=== PATIENT | female | born 1955 | race Caucasian/White ===

== ENCOUNTER 2024-10-27 13:22 | Emergency (ER) | payer MEDICARE, SELFPAY ==
[2024-10-27 13:38] VITALS: BP 119/55; PULSE 107; RESP 16; TEMP 36.1; O2SAT 100
--- NOTE | 2024-10-27 13:57 | ED_ITS ---
HPI - Female Genitourinary General Chief complaint: Urogenital-Female Stated complaint: Urinary Problem Source: patient and RN notes reviewed Mode of arrival: ambulatory Limitations: no limitations History of Present Illness HPI Narrative: 69-year-old female presents Express Care complaining of urinary symptoms for 5 days. Patient reports having dysuria, increased frequency, hesitancy. Patient denies any fevers, back pain, abdominal pain, body aches, chills, nausea, vomiting, diarrhea, blood in her urine, vaginal bleeding, vaginal discharge summary other symptom. Patient has not taken anything [id number] for symptoms. Patient denies any significant past medical history. Related Data Home Medications ?Medication ?Instructions ?Recorded ?Confirmed ?Last Taken ?Type duloxetine 60 mg capsule,delayed 60 mg PO DAILY 04/05/21 Unknown History release gabapentin 300 mg capsule 900 mg PO TID 04/05/21 Unknown History metoprolol succinate 25 mg 25 mg PO DAILY 04/05/21 Unknown History tablet,extended release 24 hr pramipexole 1 mg tablet 1 mg PO ONCE 04/05/21 Unknown History rosuvastatin 10 mg tablet 10 mg PO DAILY 04/05/21 Unknown History Allergies Allergy/AdvReac Type Severity Reaction Status Date / Time bupropion Allergy Unknown Hallucinati Verified 04/05/21 14:23 ons Review of Systems Review of Systems: CONSTITUTIONAL: Denies fever, chills, body aches, or sweats. EYES: Denies visual changes, redness, or discharge. ENT: Denies rhinorrhea, congestion, sore throat, or otalgia. CARDIOVASCULAR: Denies chest pain, palpitations, or edema. RESPIRATORY: Denies cough or dyspnea. GASTROINTESTINAL: Denies abdominal pain, nausea, vomiting, or diarrhea. GENITOURINARY: Positive for dysuria, increased frequency, hesitancy. Negative for hematuria, vaginal bleeding, vaginal discharge. SKIN: Denies rash or itching. MUSCULOSKELETAL: Denies back pain, joint pain, or myalgia. NEUROLOGIC: Denies headache, numbness, or weakness. PSYCHIATRIC: Denies anxiety or depression. All other systems reviewed are negative, except as documented in HPI. [facility] Past Medical History Medical History Hypertension Allergies Cancer Arthritis Social History Social History Smoking packs per day: 0.5 Smoking cigarettes per day: 10.0 Smoking status: Current every day smoker Alcohol intake: never Substance use: never Comments At the time of my signature, I reviewed and agree with the nursing past medical, surgical, social, and family history. There is no relevant family history pertinent to the patient complaint. Exam Narrative: GENERAL: This is a well-nourished, well-developed adult, in no apparent distress. They are non ill-appearing, nontoxic appearing. HEAD: normocephalic, atraumatic. EYES: Sclera clear/white. Vision is grossly intact. Conjunctiva normal bilaterally. Extraocular movements intact. EARS: External ears normal,Hearing grossly intact. NOSE: External nose normal THROAT: Mucous membranes moist NECK: Normal range of motion CARDIOVASCULAR: Regular rate and rhythm. Normal S1-S2. No clicks, gallops, rubs, murmurs. RESPIRATORY: Respiratory rate normal, respiratory effort nonlabored, no respiratory distress. Lung sounds clear to auscultation throughout. Lung sounds equal bilaterally. No adventitious lung sounds. GASTROINTESTINAL: Abdomen soft, flat, non-tender, nondistended. Bowel sounds are active. No hepato-splenomegaly, or palpable masses. No guarding. No rebound tenderness. SKIN: warm, Dry, intact with no suspicious lesions or rash, good texture and turgor. NEURO: awake, alert, and oriented to person, place and time. There were no obvious focal neurologic abnormalities. EXTREMITIES: No joint tenderness, effusion, or edema noted. BACK: Nontender without deformity. No CVA tenderness. Course Course Emergency Course: Portions of this record may have been created with voice recognition software Level of Care: Express Care Visit Vital Signs Vital signs: Vital Signs Temperature 97 F L 10/27/24 13:38 Pulse Rate 107 H 10/27/24 13:38 Respiratory Rate 16 10/27/24 13:38 Blood Pressure 119/55 L 10/27/24 13:38 Pulse Oximetry 100 10/27/24 13:38 Oxygen Delivery Room Air 10/27/24 13:38 Temperature 97 F L 10/27/24 13:38 Pulse Rate 107 H 10/27/24 13:38 Respiratory Rate 16 10/27/24 13:38 Blood Pressure 119/55 L 10/27/24 13:38 Pulse Oximetry 100 10/27/24 13:38 Oxygen Delivery Room Air 10/27/24 13:38 MDM - Female Genitourinary MDM Narrative Medical decision making narrative: Urine dipstick shows evidence of urinary tract infection. Urine culture pending. Will treat with cephalexin. Discussed physical exam findings. Advised supportive measures and signs/symptoms to go to the ER. Pt is appropriate for outpt treatment and f/u. Differential Diagnosis Differential diagnosis: Likely urinary tract infection, cystitis and other (Pyelonephritis) Lab Data Attestation: I reviewed the patient's lab results. Discharge Plan Discharge Clinical Impression: Urinary tract infection Qualifiers: Urinary tract infection type: site unspecified Hematuria presence: without hematuria Qualified Code(s): N39.0 - Urinary tract infection, site not specified Patient Disposition: Home Condition: Stable Instructions: Antibiotic Form, Urinary Tract Infection in Women (ED) Additional Instructions: Take the antibiotic as prescribed The urine will be sent of for a culture to identify what type of bacteria is causing your infection. If the culture shows that the antibiotic will not get rid of your infection, you will be notified and a new antibiotic will be called in for you. Increase water intake you will need to follow up with your PCP 3-5 days. Go to the ER for any worsening symptoms, abdominal pain, fevers, nausea, vomiting, or any other concerns Patient Language: Faroese Prescriptions: New cephalexin 500 mg capsule 500 mg PO BID 5 Days Qty: 10 0RF No Action gabapentin 300 mg capsule 900 mg PO TID metoprolol succinate 25 mg tablet extended release 24 hr 25 mg PO DAILY duloxetine 60 mg capsule,delayed release(DR/EC) 60 mg PO DAILY rosuvastatin 10 mg tablet 10 mg PO DAILY pramipexole 1 mg tablet 1 mg PO ONCE Follow-up/Referrals: UNKNOWN,DOCTOR [Primary Care Provider] - Time of Disposition: 13:52
[2024-10-27 13:59] LABS: EDUAAPPEAR Cloudy; EDUABILI Negative (Negative); EDUABLOOD Negative (Negative); EDUACOLOR1 Yellow; EDUAGLUCOSE Negative (Negative); EDUAKETONE Negative (Negative); EDUALEUKO 1+ (Negative); EDUANITRATE Negative (Negative); EDUAPH 6.5; EDUAPROTEIN 1+ (Negative); EDUASPGRAVITY 1.030; EDUAUROBILI 1.0
--- OUTSIDE RECORDS SUMMARY | 2024-10-27 14:28 | XMS_ITS | Encounter Summary ---
Author Organization [facility] Address [address] [place] [address] Phone Care Team Providers Care Police [employer] Name Role Phone Jose Angel Mejia MD Primary Care Provider [phone] Jose Angel Mejia MD Primary Care Provider Jose Angel Mejia MD Primary Care Provider Krysta Worthy MD Primary Care Provider Amanda Hua MD PhD Unavailable [phone] Everett Lopes MD Unavailable [phone] Encounter Details Date Type Department Care Team (Latest Contact Info) Description 01/12/2016 Orders Only [facility] Scanning, Provider Social History Tobacco Use Types Packs/Day Years Used Date Smoking Tobacco: Never Assessed Alcohol Use Standard Drinks/Week Comments No 0 (1 standard drink = 0.6 oz pur e alcohol) Comments Unknown Sex and Gender Information Value Date Recorded Sex Assigned at Not on file Legal Sex Female 1:17 AM SUPPLY PERSON Gender Identity Female 05/11/2021 10:15 AM SUPPLY PERSON Sexual Orientation Straight 11/26/2018 1: 36 PM CDT documented as of this encounter Plan of Treatment Upcoming Encounters Date Type Department Care Team (Late st Contact Info) Description 11/18/2024 8:00 AM CDT Hospital Encounter [facility] [address] [facility] [place] [address] Jose Cardozo MD [address] [facility] [address] [place], [place] [id number] documented as of this encounter Procedures Procedure Name Priority Date/Time Associated Diagnosis Comments SCAN - PATHOLOGY 01/12/2016 documented in this encounter Results * SCAN - PATHOLOGY (01/12/2016) us Provider Scanning Edited Result - Final documented in this encounter Visit Diagnoses Not on filedocumented in this encounter Additional Health Concerns Infection Onset Date Last Indicated Resolved Time COVID: Suspected 07/09/2019 07/09/2019 07/10/2019 10:18 PM CDT Respiratory Infection (BONNIE), contact + droplet Comment:Automatically added due to negative COVID-19 result. 07/10/2019 07/10/2019 07/24/2019 3:0 6 AM CDT COVID: Suspected 02/10/2020 02/11/2020 02/12/2020 10:51 PM SUPPLY PERSON COVID19 02/11/2020 02/11/2020 02/25/2020 3:07 AM SUPPLY PERSON COVID: Recovered Comment:Added based on recent COVID infection. 02/25/2020 03/12/2020 06/24/2020 3:06 AM C DT documented as of this encounter Care Teams Police [employer] Relationship Specialty Start Date End Date Jose Angel Mejia MD PCP - General 06/09/16 06/22/19 Jose Angel Mejia MD PCP - General 05/15/16 06/08/16 Jose Angel Mejia MD PCP - General 06/01/11 05/14/16 Krysta Worthy MD PCP - General Internal Medicine 06/23/19 Amanda Hua MD PhD [address] [place] [address] Consulting Physician Neurology 03/29/22 Everett Lopes MD [address] [place] [address] Consulting Physician Cardiology 03/30/22 documented as of this encounter
--- OUTSIDE RECORDS SUMMARY | 2024-10-27 14:28 | XMS_ITS | Encounter Summary ---
Author Organization [facility] Address [address] [place] [address] Phone Care Team Providers Care Lens Gauger Name Role Phone Krysta Worthy MD Primary Care Provider Amanda Hua MD PhD Unavailable Everett Lopes MD Unavailable [phone] Encounter Details Date Type Department Care Team (Late st Contact Info) Description 06/13/2022 Telephone [facility] [address] [facility] [address] [place] [address] Zaynab Taylor LPN Social History Tobacco Use Types Packs/Day Years Used Date Smoking Tobacco: Every Day Cigarettes 1 52.1 Started: 09/16/1972 Smokeless Tobacco: Never Comments:I had quit smoking for 7 years. Restarted when both parents started cancer treatments. Alcohol Use Standard Drinks/Week Comments Not Currently 0 (1 standard drink = 0.6 oz pur e alcohol) AUDIT-C Answer Date Recorded Q1: How often do you have a drink containing alc ohol? Monthly or less 03/30/2022 Q2: How many drinks containi ng alcohol do you have on a typical day when you are drinking? 1 or 2 03/30/2022 Q3: How often do you have si x or more drinks on one occasion? Never 03/30/2022 Overall Financial Resource Strain (CARDIA) Answe r Date Recorded How hard is it for you to pa y for the very basics like food, housing, medical care, and heating? Not very hard 07/28/2019 PHQ-2 Answer Date Recorded PHQ-2 Total Score (If total score is 3 or more points, staff should administer the PHQ-9) 3 03/23/2022 Hunger Vital Sign Answer Date Recorded Within the past 12 months, y ou worried that your food would run out before you got the money to buy more. Never true 07/28/19 20 Within the past 12 months, t he food you bought just didn't last and you didn't have money to get more. Never true 07/28/2019 PRAPARE - Transportation Answer Date Re corded In the past 12 months, has l ack of transportation kept you from medical appointments or from getting medications? No 07/10 In the past 12 months, has l ack of transportation kept you from meetings, work, or from getting things needed for daily living? 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 Not on fi le documented as of this encounter Plan of Treatment Upcoming Encounters Date Type Department Care Team (Late st Contact Info) Description 11/18/2024 8:00 AM CDT Hospital Encounter [facility] [address] [place] [address] Jose Cardozo MD [address] [facility] [address] [place] [address] documented as of this encounter Visit Diagnoses Not on filedocumented in this encounter Care Teams Lens Gauger Relationship Specialty Start Date End Date Krysta Worthy MD PCP - General Internal Medicine 06/23/19 Amanda Hua MD PhD [address] [place] [address] Consulting Physician Neurology 03/29/22 Everett Lopes MD [address] [place] [address] Consulting Physician Cardiology 03/30/22 documented as of this encounter
--- OUTSIDE RECORDS SUMMARY | 2024-10-27 14:28 | XMS_ITS | Clinical Summary ---
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 09/11/2019 Assessment & Plan (07/10/2019 2:21 PM CDT): History of atherosclerosis - will obtain WANG Will place [facility] Patient will notify me if wound increases in size or if she develops evidence of infection. Ulcer of left lower extremit y, limited to breakdown of skin 06/23/2019 09/11/2019 Assessment & Plan (06/23/2019 3:22 PM CDT): Leg ulcer at the site of previous injury by a piece of sheet metal. Superficial erosion approximately 2.5 cm x 2.5 cm. No drainage. Mild cellulitis around the ulcer. Keep foot elevated. Cephalexin 250 mg q.i.d. x7 days. Papular erythematous rash on the medial and lateral edges of the wound. Apply triamcinolone to this area. If no improvement within 1 week she will call the office and we will plan to refer her to [facility]. BMI 27.0-27.9,adult 03/14/2019 02/27/20 23 Overview (03/14/2019): BMI Follow-up includes: nutrition counseling, exercise counseling and education provided. Assessment & Plan (12/12/2022 11:17 AM CDT): BMI Follow-up includes: nutrition counseling, exercise counseling, and education provided. Assessment & Plan (03/30/2022 12:11 PM RADAR OPERATOR): BMI Follow-up includes: nutrition counseling, exercise counseling and education provided. Assessment & Plan (01/23/2022 1:53 PM RADAR OPERATOR): BMI Follow-up includes: nutrition counseling, exercise counseling and education provided. Assessment & Plan (12/20/2021 1:31 PM CDT): BMI Follow-up includes: nutrition counseling, exercise counseling and education provided. Assessment & Plan (09/27/2021 11:27 AM CDT): BMI Follow-up includes: nutrition counseling, exercise counseling and education provided. Assessment & Plan (03/30/2021 11:19 AM RADAR OPERATOR): BMI Follow-up includes: nutrition counseling, exercise counseling and education provided. Assessment & Plan (12/07/2020 10:10 AM CDT): BMI Follow-up includes: nutrition counseling, exercise counseling and education provided. Sleep med evaluation for AMANDA treatment Start metformin Recommended calorie counting with goal 1200 calories per day for 1 lb weight loss per week Assessment & Plan (09/14/2020 10:19 AM CDT): BMI Follow-up includes: nutrition counseling, exercise counseling and education provided. Assessment & Plan (09/02/2020 8:32 PM CDT): BMI Follow-up includes: nutrition counseling, exercise counseling and education provided. Start buproopion Assessment & Plan (12/15/2019 10:19 AM CDT): BMI Follow-up includes: nutrition counseling, exercise counseling and education provided. Assessment & Plan (09/11/2019 2:44 PM CDT): BMI Follow-up includes: nutrition counseling, exercise counseling and education provided. Assessment & Plan (07/10/2019 1:56 PM CDT): BMI Follow-up includes: nutrition counseling, exercise counseling and education provided. Assessment & Plan (06/23/2019 1:35 PM CDT): BMI Follow-up includes: nutrition counseling, exercise counseling and education provided. URI, acute 03/14/2019 06/23/2019 Assessment & Plan (04/09/2019 3:09 PM RADAR OPERATOR): We discussed today. It sounds like the patient has an upper respiratory infection which is worsening. I recomended increased oral fluid intake. I will institute antibiotics and monitor as clinical course dictates. We'll begin her on Levaquin she continues to smoke, she is willing to try to quit on Chantix Assessment & Plan (04/03/2019 6:34 AM RADAR OPERATOR): We discussed today. It sounds like the patient has an upper respiratory infection which is worsening. I recomended increased oral fluid intake. I will institute antibiotics and monitor as clinical course dictates. Other chest pain 01/08/2019 06/23/2019 Assessment & Plan (01/08/2019 12:32 PM CDT): L sided chest pain for 1 day. Likely musculoskeletal. Normal EKG today. Normal LHC in 06/2018. - Not interested in further treatment (anti-inflammatory or other) at this time Laceration of left lower extremity 12/27/2018 06/23/2019 Assessment & Plan (01/08/2019 12:35 PM CDT): Leg wound appears to be healing though remains macerated. No sign of infection - Bactroban Assessment & Plan (12/27/2018 9:41 AM CDT): I removed 2 sutures without incident on the upper side of her left lower extremity, the macerated area was more difficult we did remove 5 sutures however there possibly is another suture remaining there is quite a bit of clotted blood there, at this point we tried softening the area she will watch this area and possibly return Skin lesion of right leg 11/27/2018 Assessment & Plan (11/27/2018 10:17 AM CDT): Images from the original note were not included. She is concerned about a cyst on her right leg we will send to Dermatology for full evaluation BMI 32.0-32.9,adult 11/05/2018 07/10/19 Overview (11/05/2018): BMI Follow-up includes: nutrition counseling, exercise counseling and education provided. Dyspnea 07/09/2018 06/23/2019 Overview (07/09/2018): Added automatically from request for surgery Dysuria 08/30/2017 08/31/2023 Assessment & Plan (07/24/2023 1:25 PM CDT): UA today Start empiric bactrim Assessment & Plan (03/30/2021 11:29 AM RADAR OPERATOR): POCT UA consistent with UTI cipro 500 BID x7 days Assessment & Plan (12/07/2020 10:10 AM CDT): UA today to evaluate for UTI Assessment & Plan (04/09/2019 3:08 PM RADAR OPERATOR): We will start with a urinalysis here today Assessment & Plan (11/27/2018 10:29 AM CDT): States she is concerned about dysuria we will check a p.o. CT dipstick care today Dipstick shows evidence of probable UTI will start with Macrobid 100 b.i.d. Assessment & Plan (08/30/2017 11:37 AM CDT): States for the last 3 months she has had symptoms of urinary tract infection/grainy urine with foul smelling odor, we will refer to Urology for full evaluation Acute cystitis 06/06/2017 06/23/2019 BMI 28.0-28.9,adult 04/25/2017 12/21/19 22 Overview (05/31/2017): BMI Follow-up includes: nutrition counseling, exercise counseling and education provided. Assessment & Plan (04/02/2018 3:57 PM RADAR OPERATOR): BMI Follow-up includes: nutrition counseling, exercise counseling and education provided. Assessment & Plan (04/25/2017 11:21 AM RADAR OPERATOR): BMI Follow-up includes: nutrition counseling, exercise counseling and education provided. Atherosclerosis of both carotid arteries 04/25/2017 06/26/2017 Assessment & Plan (05/31/2017 11:33 AM CDT): As above continue encourage her smoking cessation Assessment & Plan (04/25/2017 11:43 AM RADAR OPERATOR): We reviewed some incidental findings will begin with carotid ultrasound Aortic atherosclerosis 04/25/201706/26 Assessment & Plan (05/31/2017 11:33 AM CDT): I am continue encourage her to quit smoking I a.m. going to start her on Crestor 5 mg as well Assessment & Plan (04/25/2017 11:43 AM RADAR OPERATOR): Again review aortic incidental findings begin with aortic ultrasound BMI 30.0-30.9,adult 10/10/2016 07/10/19 20 Overview (10/27/2016): BMI Follow-up includes: nutrition counseling, exercise counseling and education provided. Assessment & Plan (07/03/2018 12:42 PM CDT): BMI Follow-up includes: nutrition counseling, exercise counseling and education provided. Assessment & Plan (05/09/2018 11:16 AM RADAR OPERATOR): BMI Follow-up includes: nutrition counseling, exercise counseling and education provided. Assessment & Plan (10/27/2016 1:46 PM CDT): Continue encourage diet and exercise Assessment & Plan (10/10/2016 2:22 PM CDT): Reviewed BMI: appropriate education provided including, nutrition and exercise. Sicca 10/10/2016 10/10/2016 Shortness of breath 09/07/2016 06/23/19 20 Assessment & Plan (04/03/2019 6:33 AM RADAR OPERATOR): At baseline. Encourage smoking cessation. Reviewed Stress echo in 2001 normal. EKG Sinus Rhythm 70, unchanged compared to 2017 -RSR(V1) -nondiagnostic. -Left atrial enlargement. - Negative precordial T-waves -Probably normal -consider anteroseptal ischemia. Follows with Dr Lopes Assessment & Plan (07/08/2018 3:02 PM CDT): Progressive and limiting exertional dyspnea in the setting of coronary disease as manifest by coronary calcification on CT imaging, and underlying tobacco use worrisome for being an anginal equivalent. She also has a new resting sinus tachycardia and anterior T-wave changes on EKG. High suspicion for critical coronary disease. Will discontinue lisinopril to allow initiation of metoprolol, begin aspirin. Assess LV function with echocardiogram. Plan coronary geography and if appropriate PCI. Reviewed in detail with her the indications risks and benefits and she agrees to proceed. Further recommendations will be forthcoming. Assessment & Plan (05/09/2018 11:56 AM RADAR OPERATOR): At baseline. Encourage smoking cessation. Reviewed Stress echo in 2001 normal. EKG Sinus Rhythm 70, unchanged compared to 2017 -RSR(V1) -nondiagnostic. -Left atrial enlargement. - Negative precordial T-waves -Probably normal -consider anteroseptal ischemia. Instruct patient if symptoms should progress she should go to the emergency room. Patient verbalizes understanding. Assessment & Plan (10/27/2016 1:48 PM CDT): States that she is improving somewhat at this time Dehydration 05/22/2016 06/23/2019 Encounter for breast reconst ruction following mastectomy 01/25/2016 08/31/2023 Mixed anxiety depressive disorder 07/26/2013 06/23/2019 Overview (06/16/2016): Anxiety and depression Assessment & Plan (08/30/2017 11:33 AM CDT): We discussed briefly today she continues on Cymbalta states that it is working well Assessment & Plan (10/27/2016 1:48 PM CDT): States she is stable at this time continues on her usual medications including Cymbalta Essential hypertension 07/26/201309/27 Overview (06/16/2016): HTN (hypertension) Assessment & Plan (03/30/2021 11:57 AM RADAR OPERATOR): BP well controlled Continue current regimen Assessment & Plan (09/14/2020 7:50 PM CDT): BP well controlled Continue metoprolol 25 daily Assessment & Plan (09/02/2020 8:27 PM CDT): BP well controlled Continue current regimen Assessment & Plan (12/15/2019 11:28 AM CDT): Well controlled and having occasional symptomatic hypotension Stop triamterene-HCTZ Continue Metoprolol XL 25 Continue home monitoring Follow up 3 months Assessment & Plan (09/11/2019 12:49 PM CDT): BP well controlled Continue Triamterene-HCTZ 37.5-25, Metop XL 25 Assessment & Plan (06/23/2019 3:23 PM CDT): Blood pressure is well controlled. Continue Dyazide Reviewed low sodium diet and hidden sources of sodium in the diet to avoid. Assessment & Plan (04/03/2019 6:33 AM RADAR OPERATOR): Very well controlled on current regimen Assessment & Plan (07/03/2018 12:56 PM CDT): Very well controlled on current regimen Assessment & Plan (04/25/2017 11:42 AM RADAR OPERATOR): Hypertension is improving with treatment. Regular aerobic exercise. Stop smoking. Blood pressure will be reassessed at the next regular appointment. Assessment & Plan (10/27/2016 1:47 PM CDT): Patient is doing very well on current medical regimen. Will continue with same treatment and monitor as clinical course dictates. Lumbago 06/26/2011 06/23/2019 Notalgia 06/26/2011 08/31/2023 Abnormal mammogram 04/08/2009 0 Chest pain 12/08/2008 09/27/2021 Encounters Date Type Department Care Team Description 10/20/2024 10:00 AM CDT Telemedicine [facility] [address] [place] [address] 10/20/2024 Telephone [facility] [address] [place] [address] 4 [address] [place] [address] Zaynab Taylor LPN 10/16/2024 Telephone [facility] [address] [place] [address] 4 [address] [place] [address] Zaynab Taylor LPN 10/13/2024 Telephone [facility] [address] [place] [id number] Opal Michel 10/06/2024 10:29 AM CDT - 10/06/2024 11:59 PM CDT Hospital Encounter [facility] [address] [place] [address] Invasive ductal carcinoma of breast, left (HCC) Discharge Disposition: Discharge to home or self care 10/06/2024 Results Follow-Up [facility] [address] [place] [phone] Valorie Zapata, RN Dexa Axial Skeleton Bone Density 1 or 2 Site 09/24/2024 Telephone [facility] [address] [place] [phone] Krysta Worthy MD Additional Services Or Orders 09/15/2024 Telephone [facility] [address] [place] [address] [place] [phone] Zac Valencia MA 09/10/2024 Telephone [facility] [address] [place] [address] [place] [phone] Krysta Worthy MD 09/01/2024 Telephone [facility] [address] [place] [phone] Hue iJmenes 08/28/2024 Telephone [facility] [address] [place] [phone] Hue Jimenes 08/26/2024 Telephone [facility] [address] [place] [phone] Hue Jimenes 08/01/2024 Results Follow-Up [facility] [place] [address] [address] [place] [address] Vianney Samaniego NP Urine culture Urine, clean voided 07/31/2024 10:26 PM CDT - 07/31/2024 11:59 PM CDT [address] [address] Acute cystitis without hematuria Discharge Disposition: Discharge to home or self care 07/31/2024 5:45 PM CDT Office Visit [facility] [place] [address] [place] [phone] Trudy Mejia NP Acute cystitis without hematuria (Primary Dx) from Last 3 Months Immunizations Immunization Administration Dates Next Due Influenza, Quadrivalent, Hig h Dose, Preservative Free, Intrr 02/26/2023,12/20/2021,03/30/2021 Influenza, Trivalent, High D ose, Split, Preservative Free, Intramuscular 01/31/2024 Influenza, Trivalent, IM (MDV) 12/16/2012 Influenza, Unspecified 07/24/2023(Deferr ed: Patient Refused),01/23/2022(Deferred: Immunocompromised),12/30/2016(Deferred : Patient Refused),12/23/2016(Deferred: Contraindication),12/11/2015(Deferred: Patient decision) Moderna SARS-CoV-2 Monovalen t Vaccination (12+ YRS) 07/07/2020,06/15/2020 Pneumococcal Conjugate PCV 13 12/15/2019 Pneumococcal Polysaccharide PPV23 03/30/2021,04/2010,01/11/2011 Tdap 12/16/2018, 9,10/11/2010,10/11 ZOSTER LIVE 05/16/2011,05/16/2011 Surgical History Surgery Date Site/Laterality Comments TONSILLECTOMY Tonsillectomy APPENDECTOMY Appendectomy OTHER SURGICAL HISTORY ABNORMAL PAPS: BIOPSIES NOT CA PORTACATH PLACEMENT 03/12/2015 - 03/11/2016 has been removed MASTECTOMY 03/12/2015 - 03/11/2016 Bilateral BREAST RECONSTRUCTION 03/12/2015 - 03/11/2016 Bilateral tissue expanders BREAST RECONSTRUCTION 04/12/2016 - 05/09/2016 Bilateral COLONOSCOPY 2010 UPPER GASTROINTESTINAL ENDOSCOPY ECTOPIC SURGERY fallopian tube removed WISDOM TOOTH EXTRACTION FLUORO GUIDED INJECTION HIP RIGHT 06/08/2022 Right Medical History Medical History Date Comments Hypertension Hypertension Osteoarthritis Osteoarthritis Hx Other Medical hx Stomach ulce rs yrs ago Depression Depression Hx Other Medical 2008 ABNORMAL PAPS; Comments: [facility] Other Medical Hyperlipidemia Hyperlipidemia Sleep apnea not using cpap a t present Colon polyp GERD (gastroesophageal reflux disease) Cancer (HCC) 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, HER 2 positive 9 months post chemo Herniated disc, cervical neck an d mid back Spondylolisthesis at L5-S1 level Multiple thyroid nodules Anxiety 1980 Family History Medical History Relation Name Comments Allergy (severe) Brother Corey Garcia Jr Arthritis Brother Corey Garcia Jr Asthma Brother Corey Garcia Jr COPD Brother Corey Garcia Jr Cancer Brother Corey Garcia Jr Depression Brother Corey Garcia Jr Arthritis Father Corey Garcia Sr father Cancer Father Corey Garcia Sr father Lymphoma Father Corey Garcia Sr father Cancer -lymphoma; /lymphoma; /Family history of lymphoma - (Added by TW Conv) Vision loss Father Corey Garcia Sr father Stroke Maternal Grandfather Kishor Garza Stroke; Coronary artery disease Maternal Grandmother Sravanthi Garza Coronary artery disease, premature; Cause of : Coronary artery disease, premature Heart attack Maternal Grandmother Sravanthi Garza Cancer Mother Brenda Garcia Colon cancer Mother Brenda Garcia Cancer -co ritu; /Cancer, colon; /Colon adenocarcinoma - (Added by TW Conv) Stroke Mother's Brother 1 Kishor Garza (uncle) Stroke; Cancer Mother's Brother 2 Marques Garza Colon cancer Mother's Brother 2 Marques Garza Cancer -colon; Leukemia Mother's Brother 3 Cancer -l eukemia; Bladder Cancer Mother's Brother 4 Kishor Garza Cancer -bladder; Cancer Mother's Brother 4 Kishor Garza Cancer Mother's Brother 5 Kan Garza Cancer Mother's Sister 1 Estee Dublo Diabetes Mother's Sister 1 Estee Dublo Diabetes type II Mother's Sister 1 Estee Dublo Diabe maik -Type 2; Pancreatic cancer Mother's Sister 2 Cance r -pancreatic; Hypertension Other 1 Family history of Hypertension; Other Other 2 Friedreich's at axia; Cancer Other 3 Family history of Cancer -; Osteoporosis Other 4 Family history of Osteoporosis; Stroke Other 5 Family history of Stroke; Other Other 6 Family history of rheumatoid arthritis - sister; Lung cancer Other 7 Family history of lung cancer - (Added by TW Conv) Leukemia Other 8 Family history of leukemia - (Added by TW Conv) Brain cancer Other 9 Family history of brain cancer - (Added by TW Conv) Bladder Cancer Other 10 Family histor y of bladder cancer - (Added by TW Conv) Kidney cancer Other 11 Family history of kidney cancer - (Added by TW Conv) Cancer Paternal Grandmother Carlota Garcia Throat cancer Paternal Grandmother Carlota Garcia Cancer -throat; Stroke Sister 1 Berta Camacho sister Stroke; Vision loss Sister 1 Berta Camacho sister Arthritis Sister 2 Berta Camacho COPD Sister 2 Berta Camacho Cancer Sister 2 Berta Camacho Depression Sister 2 Berta Camacho Hypertension Sister 2 Berta Camacho Relation Name Status Comments Brother Corey Garcia Jr Father Corey Garcia Sr father Alive Maternal Grandfather Kishor Garza Maternal Grandmother Sravanthi Garza (A ge 61) Mother Brenda Garcia Alive Mother's Brother 1 Kishor Garza (uncle) Mother's Brother 2 Marques Garza Mother's Brother 3 Mother's Brother 4 Kishor Garza Mother's Brother 5 Kan Garza Mother's Sister 1 Estee Chino Mother's Sister 2 Other 1 Other 2 Other 3 Other 4 Other 5 Other 6 Other 7 Other 8 Other 9 Other 10 Other 11 Paternal Grandmother Carlota Garcia Sister 1 Berta Camacho sister Sister 2 Berta Camacho Social History Tobacco Use Types Packs/Day Years Used Date Smoking Tobacco: Former Cigarettes 1 40 1 04/27/1982 - 02/24/2023 Smokeless Tobacco: Never Comments:I had quit smoking for 7 years. Restarted when both parents started cancer treatments. Alcohol Use Standard Drinks/Week Comments Not Currently 0 (1 standard drink = 0.6 oz pur e alcohol) AUDIT-C Answer Date Recorded Q1: How often do you have a drink containing alc ohol? Monthly or less 05/01/2023 Q2: How many drinks containi ng alcohol do you have on a typical day when you are drinking? 1 or 2 05/01/2023 Q3: How often do you have si x or more drinks on one occasion? Never 05/01/2023 Overall Financial Resource Strain (CARDIA) Answe r Date Recorded How hard is it for you to pa y for the very basics like food, housing, medical care, and heating? Not very hard 07/28/2019 PHQ-2 Answer Date Recorded PHQ-2 Total Score (If total score is 3 or more points, staff should administer the PHQ-9) 0 05/28/2024 Hunger Vital Sign Answer Date Recorded Within [...] things needed for daily living? No 07/28/2019 PHQ-9 Answer Date Recorded PHQ-9 Total Score 10 01/31/2024 Personal Safety Answer Date Recorded Have you ever been in or are you currently in a harmful physical or emotional relationship or is someone making you feel afraid or unsafe? 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 Not on fi le Obstetrics History Last Filed Vital Signs Vital Sign Reading Time Taken Comments Blood Pressure 110/70 07/31/2024 5:45 PM CDT Pulse 93 07/31/2024 5:45 PM CDT Temperature 36.4 C (97.5 F) 07/31/2024 5:45 PM CDT Respiratory Rate 16 07/31/2024 5:45 PM CDT Oxygen Saturation 98% 07/31/2024 5:45 PM CDT Inhaled Oxygen Concentration - - Weight 75.3 kg (166 lb) 07/31/2024 5:45 PM CDT Height 156.1 cm (5' 1.46) 07/31/2024 5:45 PM CD T Body Mass Index 30.9 07/31/2024 5:45 PM CDT Plan of Treatment Upcoming Encounters Date Type Department Care Team (Late st Contact Info) Description 11/18/2024 8:00 AM CDT Hospital Encounter [facility] [place] [address] Jose Cardozo MD [address] [facility] [address] [place] [address] Health Maintenance Due Date Last Done Comments Hepatitis B Screening 07/23/1973 Zoster Vaccine (2 of 3) 07/11/2011 05/16/2011, 05/15 Breast Cancer Screening-Mammogram 11/03/2016 016, 10/28/2015 Covid-19 Vaccine (2023- 5 season) 2023 04/24/2021, 07/07/2020, 06/15/2020, Additional history exists Well Visit 65+ 08/30/2024 08/31/2023, 03/12, 09/27/2021, Additional history exists Lung Cancer Screening 10/03/2024 10/03/2023 , 04/15/2022, 01/28/2021, Additional history exists Influenza Vaccine (#1) 2024 , 02/26/2023, 12/20/2021, Additional history exists Depression Screening 05/28/2025 05/28/2024, 01/31/2024, 01/31/2024, Additional history exists Fall Risk Assessment 05/28/2025 05/28/2024, 01/31/2024, 08/31/2023, Additional history exists Osteoporosis Screening-Bone Density Scan 10/06/2026 10/06/2024, 10/02/2022, 10/04/2020, Additional history exists Colon Cancer Screening-Colonoscopy 04/03/2027 04/03/2017, 09/17/2009 DTaP/Tdap/Td Vaccine (5 - Td or Tdap) 12/16/2028 12/16/2018, 12/16/2018, 10/11/2010, Additional history exists Colon Cancer Screening-CT Colonography Discontinued 04/03/2017, 09/17/2009 Colon Cancer Screening-DNA Stool Discontinued 04/03/19 18, 09/17/2009 Colon Cancer Screening-FIT Discontinued 04/03/2017, Colon Cancer Screening-Sigmoidoscopy Discontinued 04/03/2017, 09/17/2009 Hepatitis C Screening Completed 12/15/2019 Pneumococcal vaccine 65+ Completed 022, 12/15/2019, 01/11/2011, Additional history exists Medical Devices Implanted Type Area Medical Records Library Professor Device Identifier Shelf Expiration Date Model / Serial / Lot Bilateral Breast Implants,Salin e Other - see comments Bilatera l: Breast Other Description:Bilateral saline breast implants [employer] Attune S+ Cement Fix Bearing Knee 5 Baseplate Tibial [id number] - [id number] Implanted:Qty: 1 on 05/01/2023 by Michele Olivares MD at [facility] Right: Knee [employer] [id number] / / [employer] Attune Cemented Cruciate Retaining Knee Right 7 Component Femoral [id number] - [id number] Implanted:Qty: 1 on 05/01/2023 by Michele Olivares MD at [facility] Right: Knee [employer] [id number] / / [employer] Simplex P Full Dose Radiopaque Preblend Cement Bone Tobramycin 6197-9-001 - [id number] Implanted:Qty: 2 on 05/01/2023 by Michele Olivares MD at [facility] Right: Knee [employer] [id number] 07/09/2024 6197-9-001 / / [id number] [employer] Insert Attune Right Medial Stabilized Size 7 7mm [id number] - [id number] Implanted:Qty: 1 on 05/01/2023 by Michele Olivares MD at [facility] Right: Knee [employer] [id number] 10/09/2030 [id number] / / [id number] Procedures Procedure Name Priority Date/Time Associated Diagnosis Comments DEXA AXIAL SKELETON BONE DENSITY 1 OR MORE SITES Schedule Routine, Read Routine (OP Routine) 10/06/2024 11:32 AM CDT Invasive ductal carcinoma of breast, left (HCC) POCT URINALYSIS DIPSTICK Routine 07/31/2024 6:03 PM CDT Acute cystitis without hematuria URINE CULTURE Routine 07/31/2024 6:03 PM CDT Acute cystitis without hematuria CT LUNG CANCER SCREENING Schedule Routine, Read Routine (OP Routine) 10/03/2023 3:52 PM CDT Personal history of nicotine dependence HEPATITIS C ANTIBODY Routine 12/15/2019 11:05 AM CDT Encounter for HCV screening test for low risk patient COLONOSCOPY 04/03/2017 10:20 AM RADAR OPERATOR SCREENING MAMMOGRAM Routine 11/04/2015 1 2:09 PM CDT from Last 3 Months or Most Recently Relevant to Health Maintenance Results * Dexa Axial Skeleton Bone Density 1 or 2 Site (10/06/2024 11:32 AM CDT) Anatomical Region Laterality Modality Body N/A Digital Radiogra phy 10/06/2024 11:3 7 AM CDT Impressions 10/06/2024 12:25 PM CDT 1. The bone mineral density of the lumbar spine is normal. There has been a statistically significant increase in bone mineral density since the baseline examination of 08/21/2016. 2. The bone mineral density of the left femoral neck is normal. 3. The bone mineral density of the left total hip is normal. There has been a statistically significant increase in bone mineral density since the baseline examination of 08/21/2016. 4. Overall, the above findings are normal by WHO criteria. 5. Calculation of fracture risk using the FRAX model is not appropriate in certain settings. It was not performed in this patient because the patient met the following condition(s): normal bone density, prior hip or vertebral fracture. General comments regarding interpretation of bone density measurements: A) In children, premenopausal woman and males under age 50 not at increased risk for fractures only Z-scores, not T-scores are used to indicate risk. A Z-score above -2.0 is defined as within the expected range for age and Z-score at or less than -2.0 is below the expected range for age. A Z-score below the expected range for age in a patient with recent fractures and/or chronic corticosteroid treatment is consistent with a diagnosis of osteoporosis. B) In post menopausal women and males over 50, comparison of the measured bone mineral density with the average value in young normal subjects (the T-score) has been found to be useful in assessing fracture risk. Fracture risk approximately doubles for each 1.0 standard deviation (SD) in individual's hip or spine bone mineral density is below the average value of young normal subjects. The World Health Organization (WHO) has defined T-scores of -1.0 to -2.5 as diagnostic of low bone mass (OSTEOPENIA), and T-scores of -2.5 or lower to be diagnostic of OSTEOPOROSIS, based on the site of lowest bone density. Note that there will be a change in reporting format and reference databases as patients move from the younger population (group A) to the older population (group B) The National Osteoporosis Foundation (www.nof.org) recommends adequate intake of calcium and vitamin D and regular weight-bearing exercise in all patients. They recommend pharmacologic treatment in postmenopausal women and men age 50 and older presenting with any of the followin) Osteoporosis, after appropriate evaluation to exclude secondary causes. 2) A hip or vertebral (clinical or radiographic) fracture, regardless of the bone density. 3) Low bone mass (Osteopenia) and one or more of: other prior fractures, secondary causes associated with high risk of fracture (such as glucocorticoid use or total immobilization), or computed high risk of fracture (10-yr probability of hip fracture >= 3% or a 10-yr probability of any major osteoporosis-related fracture >= 20% based on the [place].-adapted WHO algorithm), available at http://www.shef.ac.uk/FRAX). Dictated by: Huber Roche M.D.(R) The radiology attending physician has personally reviewed this study, and had reviewed and/or edited this written report and agrees with it. Electronically signed by: DO Carolina Riggs 10/06/2024 12:25 PM CDT BONE DENSITOMETRY OF THE SPINE AND HIP DATE OF STUDY: 10/06/2024 HISTORY: 69-year-old postmenopausal woman with breast cancer, rheumatoid arthritis, and loss of height. She is being treated with vitamin D and calcium supplementation. Evaluate bone mineral density. Additional risk factors for fracture: Osteoarthritis and prior smoking FINDINGS (SPINE): The bone mineral density of L2, L3, L4 was assessed by dual-energy x-ray absorptiometry. L1 vertebral body was excluded because of sclerotic changes. The average bone mineral density within this region is 1.226 gm/sq-cm. This is 3.6 standard deviations above the mean of the average bone mineral density for age- and gender-matched subjects (the Z-score). It is 1.3 standard deviations above the mean peak bone mineral density in young adults (the T-score). FINDINGS (FEMORAL NECK): The bone mineral density of the left femoral neck was assessed by dual-energy x-ray absorptiometry. The average bone mineral density within the femoral neck region is 0.774 gm/sq-cm. This is 1.2 standard deviations above the mean of the average bone mineral density for age- and gender-matched subjects (the Z-score). It is 0.7 standard deviations below the mean peak bone mineral density in young adults (the T-score). FINDINGS (TOTAL HIP): The bone mineral density of the left hip was assessed by dual-energy x-ray absorptiometry. The average bone mineral density within the total hip region is 0.987 gm/sq-cm. This is 1.9 standard deviations above the mean of the average bone mineral density for age- and gender-matched subjects (the Z-score). It is 0.4 standard deviations above the mean peak bone mineral density in young adults (the T-score). SUMMARY OF CURRENT RESULTS: Region BMD T-score Z-score AP Spine (L2, L3, L4) 1.226 1.3 3.6 Femoral Neck (Left) 0.774 -0.7 1.2 Total Hip (Left) 0.987 0.4 1.9 COMPARISON WITH PREVIOUS RESULTS Region Age BMD T-score BMD Change BMD Change Exam Date g/cm2 vs Baseline vs Previous AP Spine (L2-L4) 10/06/2024 69 1.226 1.3 0.093 (8.2%)* 0.069 (6.0%)* 10/02/2022 67 1.157 0.7 0.024 (2.1%)* 0.019 (1.7%) 10/04/2020 65 1.138 0.5 0.005 (0.4%) -0.012 (-1.0%) 10/01/2018 63 1.150 0.6 0.017 (1.5%) 0.017 (1.5%) 08/21/2016 61 1.133 0.5 Total Hip(Left) 10/06/2024 69 0.987 0.4 0.071 (7.8%)* 0.037 (3.9%)* 10/02/2022 67 0.950 0.1 0.035 (3.8%)* 0.002 (0.2%) 10/04/2020 65 0.949 0.1 0.033 (3.6%)* -0.020 (-2.1%) 10/01/2018 63 0.969 0.2 0.053 (5.8%)* 0.053 (5.8%)* 08/21/2016 61 0.916 -0.2 *Denotes significance at 95% confidence level Procedure Note Jonnathan Noguera DO - 10/06/2024 BONE DENSITOMETRY OF THE SPINE AND HIP DATE OF STUDY: 10/06/2024 HISTORY: 69-year-old postmenopausal woman with breast cancer, rheumatoid arthritis, and loss of height. She is being treated with vitamin D and calcium supplementation. Evaluate bone mineral density. Additional risk factors for fracture: Osteoarthritis and prior smoking FINDINGS (SPINE): The bone mineral density of L2, L3, L4 was assessed by dual-energy x-ray absorptiometry. L1 vertebral body was excluded because of sclerotic changes. The average bone mineral density within this region is 1.226 gm/sq-cm. This is 3.6 standard deviations above the mean of the average bone mineral density for age- and gender-matched subjects (the Z-score). It is 1.3 standard deviations above the mean peak bone mineral density in young adults (the T-score). FINDINGS (FEMORAL NECK): The bone mineral density of the left femoral neck was assessed by dual-energy x-ray absorptiometry. The average bone mineral density within the femoral neck region is 0.774 gm/sq-cm. This is 1.2 standard deviations above the mean of the average bone mineral density for age- and gender-matched subjects (the Z-score). It is 0.7 standard deviations below the mean peak bone mineral density in young adults (the T-score). FINDINGS (TOTAL HIP): The bone mineral density of the left hip was assessed by dual-energy x-ray absorptiometry. The average bone mineral density within the total hip region is 0.987 gm/sq-cm. This is 1.9 standard deviations above the mean of the average bone mineral density for age- and gender-matched subjects (the Z-score). It is 0.4 standard deviations above the mean peak bone mineral density in young adults (the T-score). SUMMARY OF CURRENT RESULTS: Region BMD T-score Z-score AP Spine (L2, L3, L4) 1.226 1.3 3.6 Femoral Neck (Left) 0.774 -0.7 1.2 Total Hip (Left) 0.987 0.4 1.9 COMPARISON WITH PREVIOUS RESULTS Region Age BMD T-score BMD Change BMD Change Exam Date g/cm2 vs Baseline vs Previous AP Spine (L2-L4) 10/06/2024 69 1.226 1.3 0.093 (8.2%)* 0.069 (6.0%)* 10/02/2022 67 1.157 0.7 0.024 (2.1%)* 0.019 (1.7%) 10/04/2020 65 1.138 0.5 0.005 (0.4%) -0.012 (-1.0%) 10/01/2018 63 1.150 0.6 0.017 (1.5%) 0.017 (1.5%) 08/21/2016 61 1.133 0.5 Total Hip(Left) 10/06/2024 69 0.987 0.4 0.071 (7.8%)* 0.037 (3.9%)* 10/02/2022 67 0.950 0.1 0.035 (3.8%)* 0.002 (0.2%) 10/04/2020 65 0.949 0.1 0.033 (3.6%)* -0.020 (-2.1%) 10/01/2018 63 0.969 0.2 0.053 (5.8%)* 0.053 (5.8%)* 08/21/2016 61 0.916 -0.2 *Denotes significance at 95% confidence level IMPRESSION: 1. The bone mineral density of the lumbar spine is normal. There has been a statistically significant increase in bone mineral density since the baseline examination of 08/21/2016. 2. The bone mineral density of the left femoral neck is normal. 3. The bone mineral density of the left total hip is normal. There has been a statistically significant increase in bone mineral density since the baseline examination of 08/21/2016. 4. Overall, the above findings are normal by WHO criteria. 5. Calculation of fracture risk using the FRAX model is not appropriate in certain settings. It was not performed in this patient because the patient met the following condition(s): normal bone density, prior hip or vertebral fracture. General comments regarding interpretation of bone density measurements: A) In children, premenopausal woman and males under age 50 not at increased risk for fractures only Z-scores, not T-scores are used to indicate risk. A Z-score above -2.0 is defined as within the expected range for age and Z-score at or less than -2.0 is below the expected range for age. A Z-score below the expected range for age in a patient with recent fractures and/or chronic corticosteroid treatment is consistent with a diagnosis of osteoporosis. B) In post menopausal women and males over 50, comparison of the measured bone mineral density with the average value in young normal subjects (the T-score) has been found to be useful in assessing fracture risk. Fracture risk approximately doubles for each 1.0 standard deviation (SD) in individual's hip or spine bone mineral density is below the average value of young normal subjects. The World Health Organization (WHO) has defined T-scores of -1.0 to -2.5 as diagnostic of low bone mass (OSTEOPENIA), and T-scores of -2.5 or lower to be diagnostic of OSTEOPOROSIS, based on the site of lowest bone density. Note that there will be a change in reporting format and reference databases as patients move from the younger population (group A) to the older population (group B) The National Osteoporosis Foundation (www.nof.org) recommends adequate intake of calcium and vitamin D and regular weight-bearing exercise in all patients. They recommend pharmacologic treatment in postmenopausal women and men age 50 and older presenting with any of the followin) Osteoporosis, after appropriate evaluation to exclude secondary causes. 2) A hip or vertebral (clinical or radiographic) fracture, regardless of the bone density. 3) Low bone mass (Osteopenia) and one or more of: other prior fractures, secondary causes associated with high risk of fracture (such as glucocorticoid use or total immobilization), or computed high risk of fracture (10-yr probability of hip fracture >= 3% or a 10-yr probability of any major osteoporosis-related fracture >= 20% based on the [place].-adapted WHO algorithm), available at http://www.shef.ac.uk/FRAX). Dictated by: Huber Roche M.D.(R) The radiology attending physician has personally reviewed this study, and had reviewed and/or edited this written report and agrees with it. Electronically signed by: Jonnathan Noguera DO Vivian Kelly MD IMG DXA PROCEDURES Final Result * (ABNORMAL) POCT urinalysis dipstick (07/31/2024 6:03 PM CDT) Color, Urine, POC Yellow Clarity, ur, POC Turbid(A) Clear Glucose, ur, POC Negative Negative Bilirubin, ur, POC Negative Negative Ketones, ur, POC Negative Negative Specific [place], POC 1.020 1.003 - 1.030 Blood, ur, POC Negative Negative pH, ur, POC 7.0 5.0 - 8.0 Protein, ur, POC Negative Negative Urobilinogen, urine, POC 0.2 0.2 - 1.0 mg/dL Nitrite, ur, POC Negative Negative Leukocytes, ur, POC Small(A) Negative Lot Number [id number] Urine 07/31/2024 6:03 PM CDT us Trudy Mejia NP POINT OF CARE TEST ORDERABLES Final Result * (ABNORMAL) Urine culture Urine, clean voided (07/31/2024 6:03 PM CDT) Report Final Report: Greater than or equal to 100,000 colonies/mL of Escherichia coli (.) Comment:Testing performed by : [facility], [address], [place]., [address] Organism ESCHERICHIA COLI NOEL GOODMAN Urine, clean voided 07/31/2024 6:03 PM CDT 08/01/2024 2:19 AM CDT Narrative NOEL GOODMAN - 08/02/2024 2:48 PM CDT Testing performed by [facility] ([phone]) Organism Antibiotic Method Susceptibility Escherichia coli Ampicillin INTERPRETATION Resistant Escherichia coli Cefazolin INTERPRETATION Susceptible Escherichia coli Nitrofurantoin INTERPRETATION Susceptible Escherichia coli Gentamicin INTERPRETATION Susceptible Escherichia coli Trimethoprim with Sulfamethoxazole IN TERPRETATION Susceptible Escherichia coli Meropenem INTERPRETATION Susceptible Escherichia coli Cefepime INTERPRETATION Susceptible Escherichia coli Ciprofloxacin INTERPRETATION Resistant Escherichia coli Ceftazidime INTERPRETATION Susceptible Escherichia coli Ceftriaxone INTERPRETATION Susceptible Escherichia coli Piperacillin/Tazobactam INTERPRETATIO N Susceptible Escherichia coli Cephalexin INTERPRETATION Susceptible Escherichia coli Cefuroxime-axetil INTERPRETATION Susceptible Escherichia coli Cefdinir INTERPRETATION Susceptible us Trudy Mejia [facility] MICROBIOLOGY - GENERAL ORD ERABLES Final Result NOEL [id number] Department [place] [address] * CT Lung Cancer Screening (10/03/2023 3:52 PM CDT) Anatomical Region Laterality Modality Chest N/A Computed Tomogra phy 10/03/2023 4:55 PM CDT Narrative 10/03/2023 5:02 PM CDT EXAM DESCRIPTION: CT LUNG CANCER SCREENING REASON FOR STUDY: Screening CT of the chest in a former smoker with a 40 pack year smoking history. Additional history: None. TECHNIQUE: Low dose CT scan of the chest was performed without intravenous contrast using helical scanning technique. The exam extends from the lung apices through the lung bases. Automatic exposure control was used as a dose optimization technique. NOTE: This study was performed for the specific purposes of lung cancer screening and is not an alternative to diagnostic chest CT. RADIATION DOSE: CT dose index volume (CTDIvol) = 1.72 mGy COMPARISON: CT chest 04/15/2022 FINDINGS: SMOKING RELATED LUNG DISEASE: Moderate bilateral upper lobe predominant emphysema. LUNG NODULES: Bilateral pulmonary nodules are stable. Index nodules include: 4 mm nodule in the right apex (3/33), 4 mm nodule in the left apex (3/43), 3-4 mm nodules in the left upper lobe (3/50, 58, 63), 4 mm nodule in the right upper lobe (3/87). No suspicious pulmonary nodule CORONARY ARTERY CALCIFICATION: Present OTHER: No focal consolidation, pleural effusion or pneumothorax. Normal-sized heart without pericardial effusion. Normal caliber of the great vessels. Atherosclerotic calcification of the aorta and coronary arteries. No pleural effusion. Calcified mediastinal and left hilar nodes. Visualized upper abdomen demonstrates no acute findings. No suspicious osseous findings. IMPRESSION: Stable bilateral pulmonary nodules, likely representing infectious/inflammatory nodules. No suspicious pulmonary nodule. Moderate bilateral emphysema. Evidence of chronic granulomatous disease. Lung-RADS category 2: Benign appearance or behavior. Recommendation: Low dose Screening CT of chest in 12 months. THIS IS AN ELECTRONICALLY VERIFIED FINAL REPORT 10/03/2023 5:02 PM - Electronically signed by Radha Sood M.D. FT: FT Report ID: [id number] Reading Location: [place] [address] Procedure Note Radha Reece MD - 10/03/2023 EXAM DESCRIPTION: CT LUNG CANCER SCREENING REASON FOR STUDY: Screening CT of the chest in a former smoker with a40 pack year smoking history. Additional history: None. TECHNIQUE: Low dose CT scan of the chest was performed without intravenous contrast using helical scanning technique. The exam extends from the lung apices through the lung bases. Automatic exposure control was used as adose optimization technique. NOTE: This study was performed for the specific purposes of lung cancer screening and is not an alternative to diagnostic chest CT. RADIATION DOSE: CT dose index volume (CTDIvol) = 1.72 mGy COMPARISON: CT chest 04/15/2022 FINDINGS: SMOKING RELATED LUNG DISEASE: Moderate bilateral upper lobe predominant emphysema. LUNG NODULES: Bilateral pulmonary nodules are stable. Index nodulesinclude: 4 mm nodule in the right apex (3/33), 4 mm nodule in the left apex (3/43),3-4 mm nodules in the left upper lobe (3/50, 58, 63), 4 mm nodule in the right upper lobe (3/87). No suspicious pulmonary nodule CORONARY ARTERY CALCIFICATION: Present OTHER: No focal consolidation, pleural effusion or pneumothorax. Normal-sized heart without pericardial effusion. Normal caliber of thegreat vessels. Atherosclerotic calcification of the aorta and coronary arteries.No pleural effusion. Calcified mediastinal and left hilar nodes. Visualized upper abdomen demonstrates no acute findings. No suspicious osseousfindings. IMPRESSION: Stable bilateral pulmonary nodules, likely representing infectious/inflammatory nodules. No suspicious pulmonary nodule. Moderate bilateral emphysema. Evidence of chronic granulomatous disease. Lung-RADS category 2: Benign appearance or behavior. Recommendation: Low dose Screening CT of chest in 12 months. THIS IS AN ELECTRONICALLY VERIFIED FINAL REPORT 10/03/2023 5:02 PM - Electronically signed by Radha Sood M.D. FT: FT Report ID: [id number] Reading Location: [place] [address] us Krysta Worthy MD IMG CT PROCEDURES Dorinda l Result * Hepatitis C antibody (12/15/2019 11:05 AM CDT) Hep C Ab NON-REACTI VE NON-REACT LIA [facility] SIGNAL TO CUT-OFF 0.02 <1.00 [facility] Comment: HCV antibody was non-reactive. There is no laboratory evidence of HCV infection. In most cases, no further action is required. However, if recent HCV exposure is suspected, a test for HCV RNA (test code 33521) is suggested. 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 Room: [facility] ENDOSCOPY ROOM 1 Note Status: Finalized Procedure: Colonoscopy Indications: High risk colon cancer surveillance: Personalhistory of colonic polyps, Family history of colon cancer kaylee first-degree relative Referring MD: Jose Angel Mejia MD Providers: Everett Salcido M.D. Impression: - Internal hemorrhoids that prolapse with straining, but spontaneously regress to the resting position (Grade II) found on digital rectal exam. - One 6 mm polyp in the proximal descending colon. Resected and retrieved. - The examination was otherwise normal. Recommendation: - Discharge patient to home. - Resume previous diet indefinitely. - Continue present medications. - Await pathology results. - Repeat colonoscopy in 5 years for surveillance. - Return to primary care physician as previously scheduled. Medicines: Sedation Administered by an AnesthesiaProfessional Complications: No immediate complications. Estimated Blood Loss: Estimated blood loss: none. Procedure: The benefits, risks and alternatives of theprocedure and sedation were discussed and informed consent was obtained. All questions were answered. Please referto the signed informed consent document in the medical record. The scope was passed under direct vision.The Colonoscope [id number] was introducedthrough the anus and advanced to the the cecum, identifiedby appendiceal orifice and ileocecal valve. The colonoscopy was performed without difficulty. The patient tolerated the procedure well. The quality of the bowel preparation was good. Findings: The digital rectal exam findings include internal hemorrhoids that prolapse with straining, but spontaneously regress to the resting position (Grade II). A 6 mm polyp was found in the proximal descending colon. The polypwas sessile. The polyp was removed with a hot biopsy forceps. Resectionand retrieval were complete. Verification of patient identification forthe specimen was done by the physician and nurse using the patient's name and date. Estimated blood loss: none. The exam was otherwise without abnormality. Electronically signed by Everett Salcido M.D. Everett Salcido M.D. 04/03/2017 10:52:37 AM Number of Addenda: 0 Note Initiated On: 04/03/2017 10:20 AM Procedure Code(s): --- Professional --- 79847, Colonoscopy, flexible; with removal of tumor(s), polyp(s), or other lesion(s) by hot biopsy forceps Diagnosis Code(s): --- Professional --- Z80.0, Family history of malignant neoplasm of digestive organs D12.4, Benign neoplasm of descending colon K64.1, Second degree hemorrhoids Z86.010, Personal history of colonic polyps CPT copyright 2014 [employer]. All rights reserved. The codes documented in this report are preliminary and upon health educator reviewmay be revised to meet current compliance requirements. Recognized by the [employer] for promoting quality in endoscopy Everett Salcido MD ENDOSCOPY PROCEDURES Final Re sult * Screening Mammogram (11/04/2015 12:09 PM CDT) Anatomical Region Laterality Modality Breast N/A Mammography 11/04/2015 12:0 9 PM CDT Narrative 01/03/2016 7:56 AM CDT FLY OTVAR M.D. FINAL REPORT ACC# Date Time Exam [id number] Nov 04, 2015 12:09:00 WM [id number] Screening Akash Bilateral Technologist(s): Jessica Wei; ; EXAMINATION: Mammogram Technique: Bilateral Full-Field Digital Screening Mammogram and Digital Breast Tomosynthesis were performed. Views obtained: bilateral craniocaudal and bilateral mediolateral oblique. Computer Aided Detection of the 2D images was performed with Fluent Home.3 version 9.3. Mammogram Findings: The present examination has been compared to prior imaging studies performed at [facility] on 05/23/2005, and at [facility] on 08/10/2005. There are scattered areas of fibroglandular density. There is a new irregular mass measuring 15 millimeters with spiculated margins and associated indistinct calcifications in the posterior of the left breast at 10 o'clock. There is no suspicious abnormality in the right breast. IMPRESSION: New mass in the left breast requires additional evaluation. Additional views are recommended. OVERALL FINAL ASSESSMENT: BI-RADS CATEGORY 0: Incomplete: Need additional imaging evaluation. Requested By: Dictated By: FLY TOVAR M.D. on Nov 08 2015 8:07A This document has been electronically signed by: FLY TOVAR M.D. on Nov 08 2015 8:07A [id number] Procedure Note Provider, MD Raquel - 07/19/2016 FLY TOVAR M.D. FINAL REPORT ACC# Date Time Exam [id number] Nov 04, 2015 12:09:00 [facility] [id number] Screening Akash Bilateral Technologist(s): Jessica Wei; ; EXAMINATION: Mammogram Technique: Bilateral Full-Field Digital Screening Mammogram and Digital Breast Tomosynthesis were performed. Views obtained: bilateral craniocaudaland bilateral mediolateral oblique. Computer Aided Detection of the 2Dimages was performed with Fluent Home.3 version 9.3. Mammogram Findings: The present examination has been compared to prior imaging studies performed at [facility] on 05/23/2005, [facility] [place]. There are scattered areas of fibroglandular density. There is a new irregular mass measuring 15 millimeters with spiculated margins and associated indistinct calcifications in the posterior of the left breast at 10 o'clock. There is no suspicious abnormality in the right breast. IMPRESSION: New mass in the left breast requires additional evaluation. Additional views are recommended. OVERALL FINAL ASSESSMENT: BI-RADS CATEGORY 0: Incomplete: Need additional imaging evaluation. Requested By: Dictated By: FLY TOVAR M.D. on Nov 08 2015 8:07A This document has been electronically signed by: FLY TOVAR M.D. on Nov 08 2015 8:07A [id number] [facility] Provider MD WISE MAMMO PROCEDURES Dorinda l Result from Last 3 Months or Most Recently Relevant to Health Maintenance Insurance T MEDICARE AET MEDICARE THIRD CONSTITUTION PARTY LIABILITY - GENERIC T MEDICARE AETNA MEDICARE Advance Directives For more information, please contact: [phone] * Full Code (Latest Code Status on File) Date Activated Date Inactivated Comments 05/01/2023 2:26 PM 05/02/2023 5:09 PM * Full Code Date Activated Date Inactivated Comments 12/09/2021 2:59 AM 12/09/2021 5:24 PM * Full Code Date Activated Date Inactivated Comments 10/11/2021 7:49 AM 10/11/2021 1:45 PM * Full Code Date Activated Date Inactivated Comments 07/16/2018 11:05 AM 07/16/2018 4:50 PM * Full Code Date Activated Date Inactivated Comments 04/03/2017 9:17 AM 04/03/2017 2:05 PM Care Teams Head Girls Golf Coach Relationship Specialty Start Date End Date Krysta Worthy MD PCP - General Internal Medicine 06/23/19 Amanda Hua MD PhD [address] [place] [address] Consulting Physician Neurology 03/29/22 Everett Lopes MD [address] [place] [address] Consulting Physician Cardiology 03/30/22
--- OUTSIDE RECORDS SUMMARY | 2024-10-27 14:28 | XMS_ITS | Encounter Summary ---
Author Organization [facility] Healthcare Address [address] [place] [address] Care Team Providers Care Bill Cutter Name Role Phone Krysta Worthy MD Primary Care Provider Amanda Hua MD PhD Unavailable [phone] Everett Lopes MD Unavailable [phone] Encounter Details Date Type Department Care Team (Late st Contact Info) Description 03/31/2021 Telephone [facility] [address] [place] [address] Yancy Abel MD [facility] [address] [place] [address] Social History Tobacco Use Types Packs/Day Years Used Date Smoking Tobacco: Every Day Cigarettes 1 40 Smokeless Tobacco: Never Comments:taking chantix tryi ng to quit 3-7 per day Alcohol Use Standard Drinks/Week Comments Not Currently 0 (1 standard drink = 0.6 oz pur e alcohol) AUDIT-C Answer Date Recorded Q1: How often do you have a drink containing alc ohol? 2-4 times a month 09/14/2020 Q2: How many drinks containi ng alcohol do you have on a typical day when you are drinking? 1 or 2 09/14/2020 Q3: How often do you have si x or more drinks on one occasion? Never 09/14/2020 Overall Financial Resource Strain (CARDIA) Answe r Date Recorded How hard is it for you to pa y for the very basics like food, housing, medical care, and heating? 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 Not on fi le documented as of this encounter Plan of Treatment Upcoming Encounters Date Type Department Care Team (Late st Contact Info) Description 11/18/2024 8:00 AM CDT Hospital Encounter [facility] [place] [address] Jose Cardozo MD [address] [place] [address] documented as of this encounter Visit Diagnoses Diagnosis Obstructive sleep apnea- Primary Obstructive sleep apnea (adult) (pediatric) documented in this encounter Care Teams Bill Cutter Relationship Specialty Start Date End Date Krysta Worthy MD PCP - General Internal Medicine 06/23/19 Amanda Hua MD PhD [address] [place] [address] Consulting Physician Neurology 03/29/22 Everett Lopes MD [address] [place] [address] Consulting Physician Cardiology 03/30/22 documented as of this encounter
--- OUTSIDE RECORDS SUMMARY | 2024-10-27 14:28 | XMS_ITS | Continuity of Care Document ---
Author Name [facility] Address [address] [place] [address] Organization [facility] Care Team Providers Care Well Services Operator Name Role Phone [facility] Unavailable Unavailable Problems Problem Status Onset Date Problem Type Date of Resolution Comme nts Source CAT scan brain - abnormal (finding) Diagnosis Superficial contusion of neck (disorder) Diagnosis Spinal stenosis in cervical region (disorder) Diagnosis
--- OUTSIDE RECORDS SUMMARY | 2024-10-27 14:28 | XMS_ITS | Clinical Summary ---
Author Organization [facility] Address [address] [place] [address] Phone Care Team Providers Care Community Health Nurse Staff Name Role Phone Provider, None Primary Care Provider Unavailabl e Allergies Active Allergy Reactions Criticality Noted Date Comments Bupropion Other (see Comments) 05/15/2024 Confusion Social History Tobacco Use Types Packs/Day Years Used Date Smoking Tobacco: Every Day Cigarettes Tobacco Cessation:Ready to Q uit: Not Asked; Counseling Given: Not Answered Alcohol Use Standard Drinks/Week Comments Never 0 (1 standard drink = 0.6 oz pur e alcohol) Comments No Sex and Gender Information Value Date Recorded Sex Assigned at Not on file Legal Sex Female 8:45 PM CDT Gender Identity Not on file Sexual Orientation Not on file Last Filed Vital Signs Vital Sign Reading Time Taken Comments Blood Pressure 151/89 05/15/2024 7:30 PM 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 Pulse 106 05/15/2024 8:00 PM 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 Temperature 37 C (98.6 F) 05/15/2024 4:18 PM 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 Respiratory Rate 21 05/15/2024 7:44 PM 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 Oxygen Saturation 100% 05/15/2024 8:00 PM 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 Inhaled Oxygen Concentration - - Weight 76.2 kg (168 lb) 05/15/2024 4:18 PM 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 Height 160 cm (5' 3) 05/15/2024 4:18 PM 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 Body Mass Index 29.76 05/15/2024 4:18 PM 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 Plan of Treatment Health Maintenance Due Date Last Done Comments Hepatitis C Virus (HCV) Screening 1955 Mammogram 1955 Cologuard 1998 Colonoscopy 1998 Colorectal Cancer Screening 1998 Immunochemical Fecal Occult Blood 1998 Zoster Immunization (2 of 3) 07/11/2011 05/16/2011 SARS-COV-2 Immunization ( season) 2023 04/24/2021, 07/07/2020, 06/15/2020, Additional history exists DEXA Bone Density 10/02/2024 10/02/2022, , 10/01/2018, Additional history exists Influenza Immunization (#1) 11/10/202401/11, 02/26/2023, 12/20/2021, Additional history exists Respiratory Syncytial Virus (RSV) Immunization (Adult) (1 - 1-dose 75+ series) 2028 TdaP Immunization Completed 12/16/2018, 10/11/2010 Pneumococcal Immunization (50+ years) Completed 03/30/2021, 12/15/2019, 01/11/2011 Hepatitis B Immunization Aged Out No longer eligible based on patient's age to complete this topic Human Papillomavirus (HPV) Immunization Aged Out No longer eligible based on patient's age to complete this topic Meningococcal Immunization (ACWY) Aged Out No longer eligible based on patient's age to complete this topic Rotavirus Immunization Aged Out No lo nger eligible based on patient's age to complete this topic Insurance [employer] Care Teams Community Health Nurse Staff Relationship Specialty Start Date End Date Provider, None [place] PCP - General 3/6/25
--- OUTSIDE RECORDS SUMMARY | 2024-10-27 14:28 | XMS_ITS | Clinical Summary ---
Author Organization [facility] Address [address] [place] [address] Care Team Providers Care Crystal Grinder Name Role Phone Jose Angel Mejia MD Primary Care Provider [phone] Source Comments [facility],non-owned Affiliates and Associated Physician Practices is amultiple site organization consisting of ambulatory clinics and hospital sitesin [place], [place], [place] and [place]. This disclosure is being madepursuant to the Care Everywhere program and may not contain all information available regarding this patient. Last updated 17.[facility] Allergies No known active allergies Medications * Be aware that medications may not be up to date on this document. Alwaysverify current medications with the patient. escitalopram (LEXAPRO) 20 MG tablet Take 20 mg by mouth once daily. Active lisinopril (PRINIVIL;ZESTR IL) 5 MG tablet Take 5 mg by mouth once daily. Active desvenlafaxine SR 24hr (PRISTIQ) 50 MG tablet Take 50 mg by mouth once daily. Active pramipexole (MIRAPEX) 1 MG tablet Take 1 mg by mouth every evening. Active celecoxib (CELEBREX) 200 MG capsule Take 200 mg by mouth 2 times daily. Active esomeprazole (NEXIUM) 40 MG capsule Take 40 mg by mouth 2 times daily as needed. Active cyclobenzaprine (FLEXERIL) 10 MG tablet Take 10 mg by mouth 2 times daily. Active gabapentin (NEURONTIN) 300 MG capsule Take 300 mg by mouth as directed. 2 capsules tid (may take 9 a day, 3 or less at a time) Active diclofenac sodium (PENNSAID) 1.5 % topical solution Apply to affected area as needed. Active traMADol (ULTRAM) 50 MG tablet Take 1-2 Tabs by mouth every 6 hours as needed. Active hydrocodone-gene taminophen 5-500 MG tablet Take 5-500 Tabs by mouth as directed. Every 4-6 hours as needed Active [place] NASAL SPRAY NA [place] into the nose as needed. Active albuterol HFA (PROAIR HFA) 108 (90 BASE) MCG/ACT inhaler Inhale by mouth as needed. Active mometasone (NASONEX) 50 MCG/ACT nasal spray [place] into each nostril as needed. Active Polyethylene Glycol 400 (BLINK TEARS) 0.25 % SOLN Instill into both eyes as directed. Active Fluticasone-Ángel meterol (ADVAIR DISKUS IN) Inhale by mouth as needed. Active Multiple Vitamins-Minera ls (CENTRUM SILVER PO) Take by mouth once daily. Active Ergocalciferol (VITAMIN D PO) Take by mouth once daily. Active VITAMIN E PO Take by mouth once daily. Active CALCIUM PO Take by mouth once daily. Active Active Problems Problem Noted Date Diagnosed Date Dizziness 04/09/2013 Twitching 04/09/2013 Immunizations Immunization Administration Dates Next Due TDAP (7yrs+) 12/16/2018 Family History Medical History Relation Name Comments Cancer Father Cancer Mother High Blood Pressure Sister Stroke Sister Relation Name Status Comments Father Mother Sister Social History Tobacco Use Types Packs/Day Years Used Date Smoking Tobacco: Every Day Cigarettes Smokeless Tobacco: Never Alcohol Use Standard Drinks/Week Comments No 0 (1 standard drink = 0.6 oz pur e alcohol) Comments No Sex and Gender Information Value Date Recorded Sex Assigned at Not on file Legal Sex Female 6:13 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 Gender Identity Not on file Sexual Orientation Not on file 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 on 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 Not on brea e Last Filed Vital Signs Vital Sign Reading Time Taken Comments Blood Pressure 120/68 12/16/2018 1:19 PM CDT Pulse 80 12/16/2018 1:19 PM CDT Temperature 36.1 C (97 F) 12/16/2018 1:19 PM CDT Respiratory Rate 18 12/16/2018 1:19 PM CDT Oxygen Saturation 98% 12/16/2018 1:19 PM CDT Inhaled Oxygen Concentration - - Weight 82.6 kg (182 lb 2 oz) 12/16/2018 1:19 PM CDT Height 158.8 cm (5' 2.5) 12/16/2018 1:19 PM CDT Body Mass Index 32.78 12/16/2018 1:19 PM CDT Plan of Treatment Health Maintenance Due Date Last Done Comments BONE DENSITY TESTING 1955 COLOGUARD (AGES 45-75) - COL ON CA SCREENING 1953 COLON MONITORING 1953 COLONOSCOPY - COLON CA SCREENING 1953 CT COLONOGRAPHY - COLON CA SCREENING 1953 Colorectal Cancer Screening 1953 FIT - COLON CA SCREENING 1953 FLEX SIG - COLON CA SCREENING 1953 LIPID TESTING 1955 MAMMOGRAM 1953 HEPATITIS C SCREENING 07/18/1971 PNEUMOCOCCAL VACCINE 50+ (1 of 2 - PCV) 1972 ZOSTER VACCINE (1 of 2) 07/23/2003 COVID-19 VACCINE (1 - 2023-2 5 season) 2023 DEPRESSION SCREENING 03/12/2024 INFLUENZA VACCINE (#1) 2024 12/16/2012 Respiratory Syncytial Virus (RSV) Vaccine Pt: or over 60 yrs (1 - 1-dose 75+ series) 2028 DTAP/TDAP/TD VACCINES (2 - T d or Tdap) 12/16/2028 12/16/2018 HEPATITIS B VACCINE Aged Out No longe r eligible based on patient's age to complete this topic HIB VACCINE Aged Out No longer eligi ble based on patient's age to complete this topic HPV VACCINE Aged Out No longer eligi ble based on patient's age to complete this topic MENINGOCOCCAL (Group B) VACC INE SHARED DECISION-MAKING Aged Out No longer eligibl e based on patient's age to complete this topic MENINGOCOCCAL GROUPS A/C/Y/W VACCINE Aged Out No longer eligible b ased on patient's age to complete this topic Insurance AETNA MEDICARE Care Teams Crystal Grinder Relationship Specialty Start Date End Date Jose Angel Mejia MD [address] [place] [address] PCP - General Internal Medicine 12/13/12
--- OUTSIDE RECORDS SUMMARY | 2024-10-27 14:28 | XMS_ITS | Encounter Summary ---
Author Organization [facility] Healthcare Address [address] [place] [address] Care Team Providers Care Rope Cutter Name Role Phone Krysta Worthy MD Primary Care Provider Amanda Hua MD PhD Unavailable [phone] Everett Lopes MD Unavailable Encounter Details Date Type Department Care Team (Late st Contact Info) Description 10/12/2020 Telephone [facility] [address] [place] [address] Transcribed Order, Provider Social History Tobacco Use Types Packs/Day Years Used Date Smoking Tobacco: Every Day Cigarettes 0.5 30 Smokeless Tobacco: Never Comments:taking chantix tryi ng [...] points, staff should administer the PHQ-9) 0 09/14/2020 Hunger Vital Sign Answer Date Recorded Within [...] on file Legal Sex 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 Gender Identity Female 05/11/2021 10:15 AM NON CATEGORICAL PRESCHOOL TEACHER Sexual Orientation Straight 11/26/2018 1: 36 PM CDT 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 Not on fi le documented as of this encounter Plan of Treatment Upcoming Encounters Date Type Department Care Team (Late st Contact Info) Description 11/18/2024 8:00 AM CDT [facility] [place] [address] Jose Cardozo MD [address] [place] [address] documented as of this encounter Visit Diagnoses Not on filedocumented in this encounter Care Teams Rope Cutter Relationship Specialty Start Date End Date Krysta Worthy MD PCP - General Internal Medicine 06/23/19 Amanda Hua MD PhD [address] [place] [address] Consulting Physician Neurology 03/29/22 Everett Lopes MD [address] [place] [address] Consulting Physician Cardiology 03/30/22 documented as of this encounter
--- OUTSIDE RECORDS SUMMARY | 2024-10-27 14:28 | XMS_ITS ---
Author Organization [facility] Address [address] [address] Care Team Providers Care Mri Technician Name Role Phone Krysta Worthy MD Primary Care Provider Amanda Hua MD PhD Unavailable Everett Medrano MD Unavailable Active Problems Problem Noted Date Diagnosed Date Psychological factor affecting physical conditio n 05/05/2024 Frequency of micturition 01/31/2024 History of breast cancer 08/31/2023 Assessment & Plan (08/31/2023 12:47 PM CDT): [place] Continue follow up with oncology for surveillance Intertrigo 08/31/2023 Assessment & Plan (08/31/2023 2:47 PM CDT): Rx nystatin powder Anxiety 07/24/2023 Assessment & Plan (01/31/2024 12:12 PM APPLICATION HELPER): Continue duloxetine 60 Discontinue buspar Assessment & [...] BID Assessment & Plan (02/26/2023 2:13 PM APPLICATION HELPER): BMI Follow-up includes: nutrition counseling, exercise counseling, and education provided. Arthritis 02/26/2023 Assessment & Plan (02/26/2023 2:33 PM APPLICATION HELPER): Uses meloxicam sparingly Advised she can take 2 extra strength tylenol 2-3x daily Follow up with ortho for knee replacement Spinal stenosis, cervical region 02/13/2023 Contusion of unspecified part of neck, initial e ncounter 02/13/2023 Abnormal brain scan 02/13/2023 Low serum vitamin B12 12/12/2022 Assessment & Plan (02/26/2023 2:40 PM APPLICATION HELPER): Taking 1000mcg daily Check level today History of colon polyps 06/01/2022 Overview (06/01/2022): Added automatically from request for surgery [id number] History of cerebral hemorrhage 03/30/2022 Assessment & Plan (03/30/2022 11:44 AM APPLICATION HELPER): Repeat MRI brain 05/2022 Follow up with neurology Primary insomnia 03/30/2022 Assessment & Plan (03/30/2022 11:57 AM APPLICATION HELPER): Will increase trazodone to 200mg qhs Hypersomnolence 03/29/2022 Intraparenchymal hematoma of brain 12/20/2021 Assessment & Plan (01/23/2022 2:52 PM APPLICATION HELPER): With possible underlying lesion, favored to be AVM Schedule CT and EEG as ordered by neuro Follow up with neurology Assessment & Plan (12/20/2021 4:20 PM CDT): Stable on repeat imaging Repeat MRI in 6 weeks to rule out underlying lesion Awaiting neurology consultation Intractable acute post-traumatic headache 2021 Assessment & Plan (12/20/2021 4:20 PM CDT): Start amitriptyline Provided [facility] samples Follow up 1 month Chronic pain of right thumb 12/20/2021 Assessment & Plan (12/20/2021 4:21 PM CDT): Acute worsening of chronic pain with new limited ROM Xray to rule out fracture Recommend voltaren gel prn Nonintractable headache 12/09/2021 Assessment & Plan (01/23/2022 2:52 PM APPLICATION HELPER): Improving Increase amitriptyline to 25 qhs Assessment [...] 09/27/2021 Assessment & Plan (03/30/2022 11:42 AM APPLICATION HELPER): Continue vitamin D supplement Lower extremity edema 09/27/2021 Assessment & Plan (09/27/2021 12:37 PM CDT): BNP to evaluate for possible CHF Otherwise suspect venous insufficiency Recommend compression stockings, sodium restriction Will obtain TTE if BNP elevated SCC (squamous cell carcinoma), leg, left 10/08/2 021 Dysequilibrium 12/07/2020 Assessment & Plan (12/07/2020 [...] 02/23/2020 Assessment & Plan (02/23/2020 9:55 AM APPLICATION HELPER): Likely related to recent COVID infection Expect this will continue to improve Re-evaluate if persists or worsens Memory loss 12/15/2019 Assessment & Plan (02/26/2023 2:30 PM APPLICATION HELPER): Likely 2/2 stroke Continue secondary stroke prevention [...] avoid scented soaps and lotions Atherosclerosis of [place] ronary artery of [place] heart without angina pectoris 06/23/2019 Overview (06/23/2019): Cardiac cath 07/09/18: Mild, nonobstructing triple vessel coronary artery disease. No intervention. Assessment & Plan (08/31/2023 12:45 PM CDT): Continue aspirin, statin Assessment & Plan (03/30/2022 11:42 AM APPLICATION HELPER): Nonobstructive CAD Continue aspirin, statin, metoprolol Assessment [...] CT Assessment & Plan (01/31/2024 12:13 PM APPLICATION HELPER): Stable Continue albuterol prn Encouraged continued smoking cessation Assessment & Plan (08/31/2023 3:31 PM CDT): Encouraged smoking cessation Continue albuterol prn Assessment & Plan (03/30/2022 11:43 AM APPLICATION HELPER): Continue albuterol prn Assessment & Plan (12/09/2021 4:06 AM CDT): In setting of at least 20-30 years of smoking 1 ppd. No recent PFTs available. Possibly contributing to nocturnal hypoxemia and daytime somnolence and headache. - albuterol PRN Assessment & Plan (09/27/2021 7:59 AM CDT): Continue albuterol prn Encouraged smoking cessation Assessment & Plan (09/14/2020 7:51 PM CDT): Continue trilogy, albuterol p.r.n. Ruyulair for allergies Assessment & Plan (09/02/2020 8:33 PM CDT): Continue trelegy and albuterol prn Assessment & Plan (02/23/2020 9:54 AM APPLICATION HELPER): Symptoms stable Continue Trelegy, albuterol prn Assessment [...] rheumatoid arthritis. She states she seen a insulation worker many years ago I will refer her [...] 10/27/2016 Assessment & Plan (01/31/2024 12:16 PM APPLICATION HELPER): Continue topiramate 50 BID Previously had negative side effects from bupropion Would like to avoid phentermine given history of CAD (mild atherosclerosis on [facility] 2018) Start zepbound Assessment & Plan (10/27/2016 1:46 PM CDT): She states she is due for colonoscopy will refer her to Dr. Roman in [place] Dry mouth 10/10/2016 Assessment & Plan (10/10/2016 2:22 PM CDT): Reassured patient she does not have any oral lesions. The reason the saliva bubbles are sticking to the back of her throat because her mouth is dry. She may use [id number] oral lubricant rinses. Osteoarthritis of right knee 09/07/2016 Assessment & Plan (04/25/2017 11:42 AM APPLICATION HELPER): She is stable at this time we can follow Osteoarthritis of left knee 09/07/2016 Edema 09/07/2016 Assessment & Plan (07/03/2018 12:58 PM CDT): States she is due for cardiac workup soon she has very mild edema currently EKG his possibly concerning for inferior T-waves Assessment & Plan (05/09/2018 11:52 AM APPLICATION HELPER): Bilateral ankle swelling at baseline: I do not think this is related to Congestive heart failure. Invasive ductal carcinoma of breast, left 2015 Overview (06/23/2019): left mastectomy with sentinel node biopsy and right prophylactic mastectomy on 01/12/16 Assessment & Plan (03/30/2022 11:43 AM APPLICATION HELPER): On anastrozole Continue follow up with Dr. [...] medication Assessment & Plan (04/11/2018 9:42 AM APPLICATION HELPER): She states she is doing well on current regimen of Mirapex at night Assessment & Plan (08/30/2017 11:32 AM CDT): Stable on current regimen I think we can still follow her on Mirapex 1 Assessment & Plan (04/25/2017 11:42 AM APPLICATION HELPER): No issues currently Assessment & Plan (01/23/2017 11:27 AM APPLICATION HELPER): I gave her samples of Horizant 300 , we will have her switch over and follow continues on Mirapex Gastroesophageal reflux disease 09/09/2013 Overview (06/16/2016): GERD (gastroesophageal reflux disease) Assessment & Plan (12/07/2020 10:08 AM CDT): Likely cause of epigastric tenderness, dysphagia and sore throat Start Protonix daily Consider EGD if no improvement in symptoms Assessment & Plan (04/03/2019 6:34 AM APPLICATION HELPER): States she has not have any current [...] 10 Assessment & Plan (02/26/2023 2:29 PM APPLICATION HELPER): Continue rosuvastatin 10 Assessment & Plan (03/30/2022 11:42 AM APPLICATION HELPER): Lipid panel 09/2021 wnl Continue rosuvastatin 10 [...] goal. Assessment & Plan (04/11/2018 9:41 AM APPLICATION HELPER): Redraw fasting lipid profile in the near future Assessment & Plan (08/30/2017 11:32 AM CDT): Unchanged at this time will monitor Assessment & Plan (04/25/2017 11:42 AM APPLICATION HELPER): Recheck a fasting lipid profile she is not currently on statin drugs Assessment & Plan (10/27/2016 1:47 PM CDT): We will follow on current regimen, check a fasting lipid in the future Mild obstructive sleep apnea 07/26/2013 Overview (06/16/2016): AMANDA (obstructive sleep apnea) Assessment & Plan (03/30/2022 11:43 AM APPLICATION HELPER): Encouraged CPAP compliance Follow up with Dr. Lozoya Assessment & Plan (01/23/2022 2:51 PM APPLICATION HELPER): Needs CPAP Has appt with Dr. Lozoya [...] Medicine. Assessment & Plan (04/03/2019 6:33 AM APPLICATION HELPER): No issues currently continues on usual treatment Assessment & Plan (04/11/2018 9:42 AM APPLICATION HELPER): No issues currently continues on usual treatment Assessment & Plan (08/30/2017 11:33 AM CDT): Continues on current CPAP Assessment & Plan (10/27/2016 1:48 PM CDT): No new changes continue the same treatment Former smoker 07/26/2013 Overview (06/16/2016): Smoker Assessment & Plan (07/24/2023 1:18 PM CDT): Congratulated on cessation Continue chantix Assessment & Plan (02/26/2023 2:30 PM APPLICATION HELPER): 2.5 days cigarette free - congratulated on cessation Continue chantix If cravings not reduced by the end of 1 mo on chantix, could switch to bupropion Assessment & Plan (03/30/2022 12:12 PM APPLICATION HELPER): Encouraged cessation Planning to use Quit Now [...] 12/08/2008 Assessment & Plan (01/31/2024 12:33 PM APPLICATION HELPER): BP well controlled on metoprolol though she [...] not she can resume as her former gravel roofer recommended it for management of her non-obstructive CAD Assessment & Plan (07/24/2023 1:24 PM CDT): Frequent low BP Stop metoprolol Follow up 6 weeks Assessment & Plan (02/26/2023 2:29 PM APPLICATION HELPER): BP well controlled Continue metoprolol XL 25 Assessment & Plan (03/30/2022 11:42 AM APPLICATION HELPER): BP well controlled Continue metoprolol XL 25 Assessment & Plan (01/23/2022 2:12 PM APPLICATION HELPER): BP well controlled Continue metoprolol XL 25 Assessment & Plan (12/20/2021 7:39 AM CDT): BP well controlled Continue metoprolol XL 25 Assessment & Plan (12/09/2021 4:07 AM CDT): Continue home metoprolol XL 25 mg daily Assessment & Plan (09/27/2021 7:57 AM CDT): BP well controlled Continue metoprolol XL 25 Current Treatment and Therapy Plans No current plan information found. Past Treatment and Therapy Plans Line Care Plan Name Start Date Discontinue Date Treatment Medications Discontinue Reason Plan Provider IV Maintenance Therapy Plan 07/07/2021 05/22/2023 No medications scheduled. Automatic discontinuation of dormant plans Vivian Kelly MD Lifetime Dose Tracking * Chemical Lifetime Dose Automatic Entry Manual Entr y Fluoro Time 0.1 minutes 0.1 minutes 0 minutes Air kerma at the reference point (Ka,r) 0.686 mGy 0 .686 mGy 0 mGy DLP 3,408.8 mGycm 3,408.8 mGycm 0 mGycm CTDIvol 6.48 mGy 6.48 mGy 0 mGy Resolved Problems Problem Noted Date Diagnosed Date [...] 12/20/2021 Assessment & Plan (03/30/2021 11:59 AM APPLICATION HELPER): Given smoking history, would like to rule out head and neck malignancy Referred to ENT for evaluation Prediabetes 12/07/2020 03/30/2022 Assessment & Plan (09/27/2021 12:33 PM CDT): A1c today Encouraged lifestyle modifications Will likely attempt initiation of trulicity pending lab results Assessment & Plan (03/30/2021 11:58 AM APPLICATION HELPER): A1c today Continue metformin Consider GLP-1 Assessment & Plan (12/07/2020 10:10 AM CDT): Start metformin 500 daily x1 week then 1000 daily with food Diarrhea 02/23/2020 09/14/2020 Assessment & Plan (02/23/2020 9:53 AM APPLICATION HELPER): Likely antibiotic side effect Notify me if worsens/persists after completion of abx course COVID-19 virus detected 02/23/2020 07/0 08/2020 Assessment & Plan (02/23/2020 9:54 AM APPLICATION HELPER): Has completed quarantine Advised she can test [...] provided. Assessment & Plan (03/30/2022 12:11 PM APPLICATION HELPER): BMI Follow-up includes: nutrition counseling, exercise counseling and education provided. Assessment & Plan (01/23/2022 1:53 PM APPLICATION HELPER): BMI Follow-up includes: nutrition counseling, exercise counseling and education provided. Assessment & Plan (12/20/2021 1:31 PM CDT): BMI Follow-up includes: nutrition counseling, exercise counseling and education provided. Assessment & Plan (09/27/2021 11:27 AM CDT): BMI Follow-up includes: nutrition counseling, exercise counseling and education provided. Assessment & Plan (03/30/2021 11:19 AM APPLICATION HELPER): BMI Follow-up includes: nutrition counseling, exercise counseling [...] 06/23/2019 Assessment & Plan (04/09/2019 3:09 PM APPLICATION HELPER): We discussed today. It sounds like the patient has an upper respiratory infection which is worsening. I recomended increased oral fluid intake. I will institute antibiotics and monitor as clinical course dictates. We'll begin her on Levaquin she continues to smoke, she is willing to try to quit on Chantix Assessment & Plan (04/03/2019 6:34 AM APPLICATION HELPER): We discussed today. It sounds like the [...] (07/09/2018): Added automatically from request for surgery [id number] Dysuria 08/30/2017 08/31/2023 Assessment & Plan (07/24/2023 1:25 PM CDT): UA today Start empiric bactrim Assessment & Plan (03/30/2021 11:29 AM APPLICATION HELPER): POCT UA consistent with UTI cipro 500 BID x7 days Assessment & Plan (12/07/2020 10:10 AM CDT): UA today to evaluate for UTI Assessment & Plan (04/09/2019 3:08 PM APPLICATION HELPER): We will start with a urinalysis here [...] provided. Assessment & Plan (04/02/2018 3:57 PM APPLICATION HELPER): BMI Follow-up includes: nutrition counseling, exercise counseling and education provided. Assessment & Plan (04/25/2017 11:21 AM APPLICATION HELPER): BMI Follow-up includes: nutrition counseling, exercise counseling and education provided. Atherosclerosis of both carotid arteries 04/25/2017 06/26/2017 Assessment & Plan (05/31/2017 11:33 AM CDT): As above continue encourage her smoking cessation Assessment & Plan (04/25/2017 11:43 AM APPLICATION HELPER): We reviewed some incidental findings will begin with carotid ultrasound Aortic atherosclerosis 04/25/201706/26 Assessment & Plan (05/31/2017 11:33 AM CDT): I am continue encourage her to quit smoking I a.m. going to start her on Crestor 5 mg as well Assessment & Plan (04/25/2017 11:43 AM APPLICATION HELPER): Again review aortic incidental findings begin with aortic ultrasound BMI 30.0-30.9,adult 10/10/2016 07/10/19 20 Overview (10/27/2016): BMI Follow-up includes: nutrition counseling, exercise counseling and education provided. Assessment & Plan (07/03/2018 12:42 PM CDT): BMI Follow-up includes: nutrition counseling, exercise counseling and education provided. Assessment & Plan (05/09/2018 11:16 AM APPLICATION HELPER): BMI Follow-up includes: nutrition counseling, exercise counseling and education provided. Assessment & Plan (10/27/2016 1:46 PM CDT): Continue encourage diet and exercise Assessment & Plan (10/10/2016 2:22 PM CDT): Reviewed BMI: appropriate education provided including, nutrition and exercise. Sicca 10/10/2016 10/10/2016 Shortness of breath 09/07/2016 06/23/19 20 Assessment & Plan (04/03/2019 6:33 AM APPLICATION HELPER): At baseline. Encourage smoking cessation. Reviewed Stress echo in 2001 normal. EKG Sinus Rhythm 70, unchanged compared to 2017 -RSR(V1) -nondiagnostic. -Left atrial enlargement. - Negative precordial T-waves -Probably normal -consider anteroseptal ischemia. Follows with Dr Medrano Assessment & Plan (07/08/2018 3:02 PM CDT): [...] forthcoming. Assessment & Plan (05/09/2018 11:56 AM APPLICATION HELPER): At baseline. Encourage smoking cessation. Reviewed Stress [...] (hypertension) Assessment & Plan (03/30/2021 11:57 AM APPLICATION HELPER): BP well controlled Continue current regimen Assessment [...] avoid. Assessment & Plan (04/03/2019 6:33 AM APPLICATION HELPER): Very well controlled on current regimen Assessment & Plan (07/03/2018 12:56 PM CDT): Very well controlled on current regimen Assessment & Plan (04/25/2017 11:42 AM APPLICATION HELPER): Hypertension is improving with treatment. Regular aerobic [...]
--- OUTSIDE RECORDS SUMMARY | 2024-10-27 14:28 | XMS_ITS | Encounter Summary ---
Author Organization [facility] Address [address] [place] [address] Phone Care Team Providers Care Legal Aide Name Role Phone Krysta Worthy MD Primary Care Provider Amanda Hua MD PhD Unavailable [phone] Everett Lopes MD Unavailable Encounter Details Date Type Department Care Team (Late st Contact Info) Description 10/26/2023 Telephone [facility] Oncology [address] [place] [phone] Niki Del Real, B.A. Social History Tobacco Use Types Packs/Day Years [...] more points, staff should administer the PHQ-9) 6 08/27/2023 Hunger Vital Sign Answer Date Recorded Within [...] things needed for daily living? No 07/28/2019 Personal Safety Answer Date Recorded Have you ever been in or are you currently in a harmful physical or emotional relationship or is someone making you feel afraid or unsafe? 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 Not on fi le documented as of this encounter Plan of Treatment Upcoming Encounters Date Type Department Care Team (Late st Contact Info) Description 11/18/2024 8:00 AM CDT Hospital Encounter [facility] [address] [place] [address] Jose Cardozo MD [address] [facility] [address] [place], [place] [id number] documented as of this encounter Visit Diagnoses Not on filedocumented in this encounter Care Teams Legal Aide Relationship Specialty Start Date End Date Krysta Worthy MD PCP - General Internal Medicine 06/23/19 Amanda Hua MD PhD [address] [place], [place] [phone] Consulting Physician Neurology 03/29/22 Everett Lopes MD [address] [place] [address] Consulting Physician Cardiology 03/30/22 documented as of this encounter
--- OUTSIDE RECORDS SUMMARY | 2024-10-27 14:32 | XMS_ITS | Continuity of Care Document ---
Author Name [facility] Address [address] [place] [address] Organization [facility] Care Team Providers Care Heel Builder Name Role Phone [facility] Unavailable Unavailable Problems Problem Status Onset Date Problem Type Date of Resolution Comme nts Source CAT scan brain - abnormal (finding) Diagnosis Superficial contusion of neck (disorder) Diagnosis Spinal stenosis in cervical region (disorder) Diagnosis
== END 2024-10-27 13:57 | disposition home or self-care (01) ==
DX: N39.0 Urinary tract infection, site not specified (principal); F17.210 Nicotine dependence, cigarettes, uncomplicated; I10 Essential (primary) hypertension; M19.90 Unspecified osteoarthritis, unspecified site; Z85.9 Personal history of malignant neoplasm, unspecified
CPT/HCPCS: 81003; 87086; 99213; G0463